=== PATIENT | female | born 1955 | race Caucasian/White ===

== ENCOUNTER 2017-02-09 10:19 | Inpatient (IN) ==
--- NOTE | 2017-02-09 08:12 | Discharge Summary ---
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 Comments: Right Qualifiers: Encounter type: subsequent encounter Qualified Code(s): T84.028D - Dislocation of other internal joint prosthesis, subsequent encounter; Z96.619 - Presence of unspecified artificial shoulder joint (2) Obesity (BMI 30.0-34.9) Priority: Secondary Status: Chronic (3) Acute blood loss anemia Priority: Primary Status: Acute - Discharge Medications Prescriptions: Vancomycin HCl in Dextrose 5 % [Vancomycin-D5w 1.5 Gram/250 ml] 1.5 gm IV Q12H 42 Days Home Medications: Chlordiazepoxide [Librium] 10 mg PO TID 02/09/17 [History] Cyclobenzaprine [Flexeril] 10 mg PO TID 02/09/17 [History] OxyCODONE Immed Rel [Roxicodone 5 MG] 5 mg PO Q4HR PRN #30 tablet 02/09/17 [Rx] Pramipexole Di-HCl [Pramipexole Dihydrochloride] 0.5 mg PO HS 02/09/17 [History] Thyroid,Pork [[place] Thyroid] 15 mg PO DAILY 02/09/17 [History] Thyroid,Pork [[place] Thyroid] 180 mg PO DAILY 02/09/17 [History] Vancomycin HCl in Dextrose 5 % [Vancomycin-D5w 1.5 Gram/250 ml] 1.5 gm IV Q12H 42 Days 02/11/17 [Rx] Allergies/Adverse Reactions: Allergies sulfamethoxazole [From Bactrim] Allergy (Verified 02/09/17 10:48) Hives SWELLING trimethoprim [From Bactrim] Allergy (Verified 02/09/17 10:48) Hives SWELLING azithromycin Adverse Reaction (Verified 02/09/17 10:52) See Comments SWELLING,RASH,ITCHING Primary care physician: PCP NO - Patient Status Disposition: Home Health Service Condition: Good Functional capacity at discharge: independent ambulation Overall status at discharge: patient is progressing back to baseline - Discharge Instructions Follow Up With: NO,PCP [Primary Care Provider] - - Hospital Course Hospital course: Ms. Gray is a 62 year old female Status post revision right total shoulder replacement. X-rays on postoperative day one showed shoulder well aligned. Located. Patient will be discharged today after afternoon IV antibiotic dose. Set up for home health to start tomorrow. Patient received limited therapy no shoulder motion wall in the hospital. Continue his IV antibiotics as per protocol for concern for infected shoulder patient had an open draining wound preoperatively. - Time Spent with Patient Total time spent providing and/or coordinating discharge services:
[2017-02-09] MEDS ORDERED: Famotidine 20 MG/2 ML VIAL IVP ONE (10:46)
[2017-02-09] MEDS ORDERED: Gabapentin 300 MG CAPSULE PO ONE (10:47)
[2017-02-09] MEDS ORDERED: Lidocaine -MPF 1% 2 ML VIAL ID ONE (10:48)
[2017-02-09] MEDS ORDERED: Vancomycin 1,250 MG in D5% in Water 250 ML IVPB ONE (10:48)
--- NOTE | 2017-02-09 10:50 | History & Physical Report ---
Date of Encounter: 02/09/17 Time of Encounter: 10:50 24 Hour HP Update - Instructions Instructions: If the History and Physical is less than 30 days old and was completed prior to A.M. admission and or procedure and has NOT been updated on calendar day of procedure please complete this update prior to performing procedure. - Update Patient reports changes in Medical Condition: No Changes in examination, assessment, or condition: No Changes in Medication: No Preop tests/diagnostics Reviewed: Yes Surgery Remains Indicated: Yes Consent for Planned Operative Procedure(s) Verified: Yes - Pre-Operative Checklist Preoperative Checklist Indicated: No Prophylactic Antibiotic Ordered: Yes Is VTE Prophylaxis Indicated?: Yes
[2017-02-09] MEDS ORDERED: Ringers Solution, Lactated 1,000 ML IVC SCH ×2 (11:00)
[2017-02-09] MEDS ORDERED: Lidocaine -MPF 4% 5 ML AMPUL ONE (11:08)
[2017-02-09] MEDS ORDERED: *HR* Succinylcholine 200 MG/10 ML VIAL IVP ONE (11:08)
[2017-02-09] MEDS ORDERED: Ondansetron 4 MG/2 ML VIAL ONE (11:08)
[2017-02-09] MEDS ORDERED: Lidocaine -MPF 2% 2 ML VIAL ONE (11:08)
[2017-02-09] MEDS ORDERED: Dexamethasone 4 MG/ML VIAL ONE (11:08)
[2017-02-09] MEDS ORDERED: *HR* Propofol 200 MG/20 ML VIAL IVP ONE (11:08)
[2017-02-09] MEDS ORDERED: *HR* FentaNYL (PF) 100 MCG/2 ML VIAL ONE (11:11)
[2017-02-09] MEDS ORDERED: *HR* Midazolam HCl 2 MG/2 ML VIAL ONE (11:11)
--- NOTE | 2017-02-09 11:18 | Anesthesia Evaluation PreOp ---
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: Denies Any Significant HX Other Medical History: Other (Rheumatoid) Anesthesia History: No Prior Anesthetic Complications : No Alcohol Use: none Drug use: none Medications and Allergies Chlordiazepoxide [Librium] 10 mg PO TID 02/09/17 [History] Cyclobenzaprine [Flexeril] 10 mg PO TID 02/09/17 [History] OxyCODONE Immed Rel [Roxicodone 5 MG] 5 mg PO Q4HR PRN #30 tablet 02/09/17 [Rx] Pramipexole Di-HCl [Pramipexole Dihydrochloride] 0.5 mg PO HS 02/09/17 [History] Thyroid,Pork [[place] Thyroid] 15 mg PO DAILY 02/09/17 [History] Thyroid,Pork [[place] Thyroid] 180 mg PO DAILY 02/09/17 [History] Allergies sulfamethoxazole [From Bactrim] Allergy (Verified 02/09/17 10:48) Hives SWELLING trimethoprim [From Bactrim] Allergy (Verified 02/09/17 10:48) Hives SWELLING azithromycin Adverse Reaction (Verified 02/09/17 10:52) See Comments SWELLING,RASH,ITCHING - Meds/Allergy Pre-op Review Medications Reviewed: Yes Allergies Reviewed: Yes Beta Blockers on Current Med List: No Anesthesia Results - Labs Laboratory Tests 02/06/17 02/06/17 12:11 12:11 Hgb 8.5 L Hct 29.2 L Plt Count 208 Sodium 138 Potassium 4.2 BUN 13 Creatinine 0.71 - Imaging EKG: report reviewed (SR) Anesthesia Exam O2 Sat Height 1.63 m Height 1.63 m Weight 87.543 kg Weight 87.543 kg O2 Sat by Pulse Oximetry 98 Vital Signs Temp Pulse Resp BP Pulse Ox 98.6 F 96 18 128/74 98 02/09/17 10:46 02/09/17 10:46 02/09/17 10:46 02/09/17 10:46 02/09/17 10:46 Height: 5'4 Weight: 193 lbs NPO (# of Hours): MN Pain Scale: 0 - HEENT Pupil (Motor): Pupils equal, EOMI Mallampati: III Teeth: Normal Oral Opening: Less than or equal to 3 - WASHER AND CRUSHER TENDER LOC: Oriented WASHER [employer] CRUSHER TENDER Motor: Normal RUE, Normal LUE, Normal RLE, Normal LLE, Normal Face WASHER AND CRUSHER TENDER Sensory: Normal: RUE, LUE, RLE, LLE, Face - Cardiac Rhythm: Regular Murmur: None JVD: No Carotid Bruit: No - Pulmonary Breath Sounds: bilateral Clear Respiratory Effort: Symmetrical Anesthesia Assess/Plan ASA Score: 2 Modified Amanda Scale for Level of Consciousness: Cooperative, oriented, and tranquil Anesthetic Plan: General, Regional Monitoring Plan: Standard Monitors Recovery Plan: PACU (Discussed GA and RA, agrees to proceed)
[2017-02-09] MEDS ORDERED: Bupivacaine/Clonidine Syringe 1 EACH SYRINGE ONE (11:52)
[2017-02-09] MEDS ORDERED: ROPIVACAINE HCL/PF 0.5% 30 ML VIAL ONE (11:53)
[2017-02-09] MEDS ORDERED: *HR* Meperidine 25 MG/ML SYRINGE IVP PRN (12:44)
[2017-02-09] MEDS ORDERED: Ondansetron 4 MG/2 ML VIAL IVP ONE (12:44)
[2017-02-09] MEDS ORDERED: *HR* HYDROmorphone (PF) 1 MG/ML SYRINGE IVP PRN ×2 (12:44→14:53)
--- NOTE | 2017-02-09 12:49 | Anesthesia Procedures ---
Date of Encounter: 02/09/17 Time of Encounter: 11:45 Procedures: Anesthesia - Nerve Block Procedure Date: 02/09/17 Time: 11:45 Checklist: Correct Patient Identifier, Correct procedure, History checked Correct side: Right Blood Thinner: No Monitor Applied: EKG, BP, Pulse Oximetry Supplemental Oxygen via Nasal Cannula (L/min): 2 Sedation: Versed (mg): 2 Sedation: Fentanyl (mcg): 100 Indication: Post Op Analgesia Pre-op Neuro Deficits: No Block Type: Supraclavicular, Other (intermediate cervical plexus) Catheter placed: No Sterile Technique: Yes Ultrasound used: Yes Anatomy identified: Yes Visual spread of Local: Yes Neuro Stimulation: No Blood on Needle Aspiration: No Smooth Injection of Local: Yes Pain with Injection of Local: No Prep: Chlorhexadine Needle: 22 x 50 mm Stimuplex Local: 0.25% Bupivicaine w/Clonidine 20 mcg/cc (intermediate cervical plexus 10 cc), Ropivacaine (0.5% with 8 decadron 30 ml) Volume (cc): 40 Number of Attempts: 1 Complications: None/effective block Vitals: VSS
--- NOTE | 2017-02-09 13:39 | Orthopedic Operative Note ---
Date of procedure: 02/09/17 Pre-op diagnosis: Right infected dislocated total reverse shoulder, Post-op diagnosis: same Procedure: Procedure: Right Revision Total Shoulder replacement reverse Estimated blood loss: 300 cc Hardware: Metal and polyethylene replacement. Arthrex: Medium baseplate, 2, 4.5 screws, one, 6.5 screw; 42 +4 glenosphere, 8 humeral stem, 6 metal spacer, 3 constrained poly-spacer Procedural Notes: Patient with a draining open wound mid third of incision approximately 1 cm in length positive erythema completely dislocated reverse shoulder no purulent material identified. Operative procedure: The patient was brought to the operating room and placed on the operating room table. The patient was placed in the modified beachchair position. All pressure points were padded appropriately. And the head was stabilized in the neutral position. The operative extremity was prepped and draped in the sterile surgical fashion. The patient received IV antibiotics prior to skin incision. An elliptical incision was made around the entire incision incorporating the open draining area and a small open wound dehiscence proximally. Incision was made through skin and subcutaneous tissue, hemo stasis was obtained with Bovie cautery. The patient had complete disruption of the deltopectoral interval with direct communication down to the prosthesis. The prosthesis was completely dislocated anteriorly. An extensive debridement was performed, the humeral component was disassembled and the humeral stem was removed without incident. Attention was then turned to the glenoid. Soft tissue was sent for specimen appeared to be inflamed synovium. The Glenosphere was removed followed by the screws and the baseplate. The wound was irrigated with 1L of Bactisure followed by 1 L of pulse irrigation. The glenoid was reamed reamed. Patient noted to have a defect in the posterior wall prior to reaming. This did not effect the structure the glenoid and involved the posterior vault vault portion of the glenoid. The medium glenoid baseplate was seated and secured and locked in place with one 6.5 central screw and 2, 4.5 locking screws.. The baseplate was irrigated and dried 42+4 glenosphere was seated and secured. Attention was then turned to the humeral side. The humerus was reamed and broached up to its appropriate size 8 in 20 degrees of retroversion. Trial reduction found the shoulder to be relocatable. Trial components were removed, real implants were seated. Trial reduction found the shoulder to be stable with the 6 metal spacer and 3 constrained poly-spacer. The trial implants were removed the real implants were seated and secured in the shoulder was reduced. The patient had excellent motion and excellent stability no shuck. The deep tissue was irrigated with bactisure and pulse irrigation deltopectoral interval was closed with #2 PDS sutur. Superficially the subcutaneous tissue was closed with 0 PDS suture, the skin was closed with skin tenzin. The patient placed sterile dressing, postoperative brace extubated and transferred to the recovery room in stable condition. Anesthesia: GETA Surgeon: Regis Willard Condition: stable Disposition: PACU
--- NOTE | 2017-02-09 14:08 | Anesthesia Evaluation Post Op ---
Date of Encounter: 02/09/17 Time of Encounter: 14:15 - Vital Signs Vital Signs: Vital Signs/O2 Sat/Glucose, Most Current Temp Pulse Resp BP Pulse Ox 02/09/17 14:00 85 18 106/69 97 02/09/17 13:50 91 16 101/73 96 02/09/17 13:40 98.4 F 90 18 109/71 100 02/09/17 10:46 98.6 F 96 18 128/74 98 - Lungs Lungs: Clear Ascult./Percussion - Airway Airway: Non-obstructed - Cardiovascular Regular Rate - Mental Status Mental Status: Alert & Oriented, Answers Appropriately - Pain Pain Scale: 0 - Nausea Vomiting Nausea Vomiting: Not Present - Hydration Hydration: Ice chips - Discharge PostOp Status: Transfer Patient to floor
[2017-02-09 14:48] LABS: Hematocrit 24.7 % (35.3-44.9); Hemoglobin 7.5 g/dL (11.5-15.4)
[2017-02-09] MEDS ORDERED: Naloxone 0.4 MG/ML INJ IVP PRN (14:53)
[2017-02-09] MEDS ORDERED: Temazepam 15 MG CAPSULE PO PRN (14:53)
[2017-02-09] MEDS ORDERED: MOM Conc 10 ML UD.LIQ PO PRN (14:53)
[2017-02-09] MEDS ORDERED: Sennosides 8.6 MG TABLET PO PRN (14:53)
[2017-02-09] MEDS ORDERED: Ondansetron 4 MG/2 ML VIAL IVP PRN (14:53)
[2017-02-09] MEDS ORDERED: Lidocaine -MPF 1% 5 ML AMPUL INFILT ONE (14:54)
[2017-02-09] MEDS: *HR* Enoxaparin 30 MG/0.3 ML SYRINGE SQ SCH (16:08)
[2017-02-09] MEDS ORDERED: *HR* Enoxaparin 30 MG/0.3 ML SYRINGE SQ SCH (18:00)
--- NOTE | 2017-02-09 18:21 | Physician Discharge Referral ---
Home Health/Hosp Referral Info Transfer to: Home Health Attending Provider: Dr. 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 For more information, call the [place] Tobacco Quit Line at 3-912-EZZR-NOW. - Dressing/Wound Care Site: right shoulder Type of Dressing/Treatments w/Frequency: Opsite placed. Keep dressing intact until first follow up appointment. If > 50% saturated, notify office, remove dressing and place appropriate dressing back in place. Dressing is water resistant, not water-proof. OK to shower, but do not get dressing wet. - Diet/Nutrition Diet/Nutrition Orders: Regular - Activity Activity Orders: Ambulate, Chair Activity: List: PT/OT. NWB to affected upper extremity. NO shoulder motion. Follow Shoulder Precautions x 6 weeks. Stay in brace during activity and at night. ICE extremity frequently throughout the day. - Services Needed Following services are medically necessary services: Nursing, Home Health Aide, Physical Therapy, Occupational Therapy, Home Infusion Home Care Orders: PICC line - Transfer Medications Home Medications: Chlordiazepoxide [Librium] 10 mg PO TID 02/09/17 [History] Cyclobenzaprine [Flexeril] 10 mg PO TID 02/09/17 [History] OxyCODONE Immed Rel [Roxicodone 5 MG] 5 mg PO Q4HR PRN #30 tablet 02/09/17 [Rx] Pramipexole Di-HCl [Pramipexole Dihydrochloride] 0.5 mg PO HS 02/09/17 [History] Thyroid,Pork [[place] Thyroid] 15 mg PO DAILY 02/09/17 [History] Thyroid,Pork [[place] Thyroid] 180 mg PO DAILY 02/09/17 [History] Allergies/Adverse Reactions: Allergies sulfamethoxazole [From Bactrim] Allergy (Verified 02/09/17 10:48) Hives SWELLING trimethoprim [From Bactrim] Allergy (Verified 02/09/17 10:48) Hives SWELLING azithromycin Adverse Reaction (Verified 02/09/17 10:52) See Comments SWELLING,RASH,ITCHING Certification: Further, I certify that my clinical findings support that this patient is homebound (i.e. absences from home require considerable and taxing effort and are for medical reasons or sabianist services or infrequently or short duration when for other reasons) because: Homebound Reason: Post-surgery restriction and or conditions limit ability to leave home Attestation: My signature below is to certify that this patient is under my care and that I, or nurse practitioner, or physician driller's assistant working with me, has a face-to- face encounter with this patient.
[2017-02-09] MEDS ORDERED: 0.9 % Sodium Chloride 250 ML ONE (21:18)
[2017-02-09] MEDS: *HR* OxyCODONE Immed Rel 5 MG TABLET PO PRN (21:34)
[2017-02-09] MEDS ORDERED: Vancomycin 1,000 MG VIAL IVPB ONE (21:38)
[2017-02-10] MEDS ORDERED: Vancomycin 1,000 MG VIAL IVPB SCH
[2017-02-10] MEDS: Vancomycin 1,250 MG in D5% in Water 250 ML IVPB SCH ×2 (01:08→11:11)
[2017-02-10] MEDS: Furosemide 20 MG/2 ML VIAL IVP PRN ×2 (01:08→05:57)
[2017-02-10] MEDS: *HR* OxyCODONE Immed Rel 5 MG TABLET PO PRN ×4 (01:14→19:59)
[2017-02-10] MEDS ORDERED: 0.9 % Sodium Chloride 250 ML ONE (01:41)
[2017-02-10] MEDS: *HR* Enoxaparin 30 MG/0.3 ML SYRINGE SQ SCH ×2 (05:57→19:59)
[2017-02-10] MEDS: Ringers Solution, Lactated 1,000 ML IVC SCH ×2 (06:58→06:59)
[2017-02-10 07:01] LABS: Hemoglobin 8.4 g/dL (11.5-15.4)
--- NOTE | 2017-02-10 07:47 | Orthopedics Progress Note ---
Date of Encounter: 02/10/17 Time of Encounter: 07:46 - Assessment and Plan (1) Unstable reverse total shoulder arthroplasty Current Visit: Yes Status: Chronic Qualifiers: Encounter type: subsequent encounter Qualified Code(s): T84.028D - Dislocation of other internal joint prosthesis, subsequent encounter; Z96.619 - Presence of unspecified artificial shoulder joint (2) Obesity (BMI 30.0-34.9) Current Visit: Yes Status: Chronic (3) Acute blood loss anemia Current Visit: Yes Status: Acute Subjective Interval history: Patient was seen this morning doing well without complaints. Afebrile vital signs stable. Operative extremity: Neurovascularly intact Dressing clean dry and intact Calves nontender Assessment and plan: Continue with postoperative care Gram stain negative we will still treat with 6 weeks IV antibiotics due to open wound postop anemia and received 2 units of blood hematocrit today is 28 Objective Vital signs: Vital Signs Temp Pulse Resp BP Pulse Ox 02/10/17 06:35 97.9 F 78 16 138/74 95 02/10/17 05:40 97.7 F 81 16 134/68 02/10/17 02:01 97.6 F 90 16 109/66 99 02/10/17 01:46 97.7 F 92 18 117/71 02/10/17 01:33 98.2 F 91 18 103/67 97 02/10/17 00:22 98.3 F 90 15 117/68 02/09/17 21:48 97.8 F 92 18 97 02/09/17 21:47 97.8 F 86 16 101/69 97 02/09/17 21:33 98.1 F 92 18 112/68 98 02/09/17 21:27 98.1 F 92 18 112/68 02/09/17 17:56 97.7 F 100 18 129/76 97 02/09/17 17:05 97.9 F 91 16 129/67 96 02/09/17 16:55 97.9 F 91 16 129/67 96 02/09/17 16:09 98.1 F 90 16 119/65 93 02/09/17 15:19 98.3 F 87 16 112/72 95 02/09/17 14:41 98.1 F 86 16 111/70 93 02/09/17 14:20 98.3 F 89 18 106/67 94 02/09/17 14:10 98.7 F 90 18 103/72 95 02/09/17 14:00 85 18 106/69 97 02/09/17 13:50 91 16 101/73 96 02/09/17 13:40 98.4 F 90 18 109/71 100 02/09/17 10:46 98.6 F 96 18 128/74 98 Intake and Output 02/09/17 02/09/17 02/10/17 15:59 23:59 07:59 Intake Total 0 / 0 0 / 0 965 / 965 Output Total 300 / 300 Balance -300 / -300 0 / 0 965 / 965 Intake: Oral 0 / 0 650 / 650 Blood Product 0 / 0 315 / 315 Rbcs Leuko Poor As-1 0 / 0 0 / 0 Unit [id number] Rbcs Leuko Poor As-1 315 / 315 Unit [id number] Output: Urine 0 / 0 Estimated Blood Loss 300 / 300 Other: # Voids 1 Weight 87.543 kg 92.4 kg - Labs CBC & BMP: 02/10/17 06:45 Labs: Abnormal lab results Hgb 8.4 g/dL (11.5-15.4) L 02/10/17 06:45 Hct 28.0 % (35.3-44.9) L 02/10/17 06:45 - VTE Documentation of Mechanical Device: Venous foot pump, device Consult Discharge Plan - Plan Referrals: NO,PCP [Primary Care Provider] -
[2017-02-10] MEDS ORDERED: THYROID PORK 15 MG PO SCH (09:00)
[2017-02-10] MEDS ORDERED: THYROID PORK 180 MG PO SCH (09:00)
[2017-02-10 16:54] LABS: BUN/Creatinine Ratio 15 (6-26); Blood Urea Nitrogen 12 mg/dL (7-20); Calcium 8.8 mg/dL (8.6-10.8); Carbon Dioxide 24 mEq/L (19-29); Chloride 106 mEq/L (98-109); Glucose 222 mg/dL (70-99); Osmolality,Calculated 291 (280-300); Potassium 3.5 mEq/L (3.5-4.5); Sodium 137 mEq/L (136-145); eGFR For African Americans > 60 (> 60); eGFR For Non-African Americans > 60 (> 60)
[2017-02-11] MEDS: Vancomycin 1,250 MG in D5% in Water 250 ML IVPB SCH ×2 (00:59→11:41)
[2017-02-11] MEDS: *HR* OxyCODONE Immed Rel 5 MG TABLET PO PRN ×2 (01:02→10:39)
[2017-02-11 03:35] LABS: Hematocrit 26.8 % (35.3-44.9)
[2017-02-11] MEDS: *HR* Enoxaparin 30 MG/0.3 ML SYRINGE SQ SCH (06:24)
--- NOTE | 2017-02-11 07:31 | Orthopedics Progress Note ---
Date of Encounter: 02/11/17 Time of Encounter: 07:30 - Assessment and Plan (1) Unstable reverse total shoulder arthroplasty Current Visit: Yes Status: Chronic Qualifiers: Encounter type: subsequent encounter Qualified Code(s): T84.028D - Dislocation of other internal joint prosthesis, subsequent encounter; Z96.619 - Presence of unspecified artificial shoulder joint (2) Obesity (BMI 30.0-34.9) Current Visit: Yes Status: Chronic (3) Acute blood loss anemia Current Visit: Yes Status: Acute Subjective Interval history: Patient was seen this morning doing well without complaints. Afebrile vital signs stable. Operative extremity: Neurovascularly intact Dressing clean dry and intact Calves nontender Assessment and plan: Continue with postoperative care No growth on cultures, hemoglobin 8.0, discharged today after afternoon antibiotic we will set up home health tomorrow for IV antibiotic. Objective Vital signs: Vital Signs Temp Pulse Resp BP Pulse Ox 02/11/17 07:08 97.8 F 91 16 104/58 99 02/11/17 00:27 97.5 F L 88 16 101/55 98 02/10/17 21:09 97.8 F 94 18 103/57 98 02/10/17 19:50 98 02/10/17 15:12 98.1 F 94 16 115/63 96 02/10/17 09:53 97.7 F 81 16 129/78 96 Intake and Output 02/10/17 02/10/17 02/11/17 15:59 23:59 07:59 Intake Total 620 / 620 500 / 500 250 / 250 Balance 620 / 620 500 / 500 250 / 250 Intake: IV Fluids 500 / 500 250 / 250 250 / 250 Vancocin 1,250 MG In 250 / 250 250 / 250 250 / 250 Dextrose 5% 250 ML @ 166. 67 mls/hr IVPB Q12H ZAY Rx#:[id number] Oral 120 / 120 250 / 250 Other: Meal Lunch Percent of Meal Consumed 50% # Voids 1 1 - Labs CBC & BMP: 02/11/17 03:32 02/10/17 15:30 Labs: Abnormal lab results Hgb 8.0 g/dL (11.5-15.4) L 02/11/17 03:32 Hct 26.8 % (35.3-44.9) L 02/11/17 03:32 Glucose 222 mg/dL (70-99) H 02/10/17 15:30 - VTE Documentation of Mechanical Device: Venous foot pump, device Consult Discharge Plan - Plan Referrals: NO,PCP [Primary Care Provider] - Prescriptions: Vancomycin HCl in Dextrose 5 % [Vancomycin-D5w 1.5 Gram/250 ml] 1.5 gm IV Q12H 42 Days
[2017-02-11] MEDS ORDERED: Thyroid (Amour) 30 MG TABLET PO SCH (09:00)
[2017-02-11 11:20] VITALS: BP 109/57
[2017-02-11] MEDS ORDERED: Aminoglycoside Consult 1 EACH MC ONE (14:18)
== END 2017-02-11 14:19 | disposition home health service (06) | DRG 315 ==
LOC: SAMDAY 10:19 → 3NENU 14:38
PROVIDERS: ADMIT Orthopaedic Surgery; ATTEND Orthopaedic Surgery